=== PATIENT | male | born 1980 | race Caucasian/White ===

== ENCOUNTER 2021-01-13 01:57 | Emergency (ER) | payer OTHER, SELFPAY ==
[2021-01-13 01:58] VITALS: BP 117/67; PULSE 101; RESP 16; TEMP 37.4; O2SAT 96; BMI 13.8
[2021-01-13 02:00] VITALS: BP 117/67; PULSE 101; RESP 16; TEMP 37.4; O2SAT 96
--- NOTE | 2021-01-13 02:06 | ED.VIS.GEN ---
History of Present Illness Chief Complaint: Abscess Informant: Patient Onset: Yesterday Narrative: Patient reports noting small bump on his left axilla yesterday increased in size today. No drainage. He denies manipulating this. He states may have a couple small ones years ago that was self-limited. He is not a diabetic. Denies fevers. Discomfort worse with palpation. Denies past medical history. Denies any allergies. Denies taking any medication prior to arrival. Prior similar symptoms: Yes Past Medical History - Allergies and Home Meds Allergies/Adverse Reactions: Allergies No Known Allergies Allergy (Verified 01/13/21 02:02) Past Medical History: None Smoking Status: Current every day smoker Review of Systems General: Denies: Chills, Fever, Sweats Eyes: Denies: Visual changes - bilaterally, Diplopia ENT: Denies: Rhinorrhea, Sore throat Cardiovascular: Denies: Chest pain, Palpitations Respiratory: Denies: Dyspnea, Cough, Dyspnea on exertion Gastrointestinal: Denies: Abdominal pain, Nausea, Vomiting, Diarrhea, Melena, Hematochezia Genitourinary: Denies: Dysuria, Hematuria, Frequency Musculoskeletal: Denies: Back pain, Extremity Pain Skin: Reports: Abscess. Denies: Rash, Wounds Neurological: Denies: Headache, Weakness, Numbness Physical Exam Vital Signs/Narrative: Vital Signs Temp Pulse Resp BP Pulse Ox 01/13/21 02:00 99.4 F H 101 H 16 117/67 96 01/13/21 01:58 99.4 F H 101 H 16 117/67 96 Inital Vital Signs reviewed: Yes General: Well nourished, Well developed, No Acute Distress Head: Normocephalic, Atraumatic Eyes: Perrl, EOMI ENT: Moist mucous membranes, No rhinorrhea Neck: Supple, Nontender Cardiovascular: Regular rate, Regular rhythm, No murmurs Respiratory: No distress, CTA bilaterally, Chest nontender Abdomen: Soft, Nontender, Nondistended, Normal bowel sounds Back: Nontender, Normal Inspection Extremities: Nontender, No edema Skin: - - Left axilla: There is a 5 x 3 cm induration with less than 1 cm eschar, no active drainage. There is a palm-sized surrounding erythema that extends inferiorly to the induration. Neurological: Alert, Oriented x3, Cranial nerves II-XII grossly intact, Normal Strength, Normal Sensation Psychological: Normal affect, Normal Mood Diagnostic/Tx/Re-eval - Medical Decision Making Patient with no past medical history, nontoxic. Exam concerning for an abscess with surrounding cellulitis. Discussed incision and drainage for which she agreed. Upon incision and loculations being broken there is no exudative drainage this is all indurated tissue. He was started on Bactrim and Keflex in the ED prescriptions for antibiotics and ibuprofen were written. He is given follow-up as an outpatient with strict return precautions. Procedure note: Incision and drainage with verbal consent. Normal sterile conditions. Skin prep performed, total of 10 cc 1% lidocaine used for local analgesia. Dated 9 prep of the skin, 11 blade for a cruciate incision was made, there is no exudative drainage. Loculations broken with a hemostat. Dark blood return, no exudates. Wound copiously flushed with 250 cc of normal saline fluid. Half inch packing due to size of wound was placed. Patient tolerated procedure well. ED Disposition - Plan for ED Patient: Disposition: Home or Assisted Living Instructions: ED Abscess Incision And Drainage, ED Cellulitis Prescriptions: Smz/Tmp Ds [Bactrim Ds] 1 tablet PO BID #20 tab Transmission Status: Pending to [facility] Ibuprofen 600 mg PO 4X/DAY PRN #20 tablet PRN Reason: Pain 1-10 Or Fever Transmission Status: Pending to [facility] Cephalexin [Keflex] 500 mg PO Q6 #40 capsule Transmission Status: Pending to [facility] Referrals: Care Physician,No Primary [Primary Care Provider] - Martin Ryan MD [STAFF PHYSICIAN] - 3-5 Days
[2021-01-13] MEDS: Cephalexin 250 MG Capsule 500 MG PO (02:13)
[2021-01-13] MEDS: Smz/Tmp Ds Tablet 1 TABLET PO (02:13)
[2021-01-13] MEDS: Lidocaine 1% (20 ml mdv) 20 ML Vial INFILT (02:13)
== END 2021-01-13 04:05 | disposition home or self-care (01) ==
PROVIDERS: Emergency Provider Emergency Medicine
DX: L02.412 Cutaneous abscess of left axilla (principal); L03.112 Cellulitis of left axilla; F17.200 Nicotine dependence, unspecified, uncomplicated
CPT/HCPCS: 10060; 99284

== ENCOUNTER 2021-12-27 22:05 | Emergency (ER) | payer SELFPAY ==
[2021-12-27 22:06] VITALS: BP 146/93; PULSE 114; RESP 16; TEMP 36.4; O2SAT 101; BMI 26.1
--- NOTE | 2021-12-27 22:26 | EX.ED.DYSGE1 ---
HPI History of Present Illness Chief Complaint: Other, Pain/Inj Informant: patient Narrative Narrative: Patient presents for evaluation concerns for swelling lower jawline left side noted 2 to 3 days ago. He states he does have dental cavities. States swelling started, he took amoxicillin 2 days ago which was leftover. He states it did make it smaller however today weight gain twice the size. He is take additional 2 amoxicillin's today. No fevers. Denies hot cold sensitivities. Denies trouble swallowing. No other complaints. Prior similar symptoms: Yes PFSH PFSH Medical History Cellulitis Home Medications NK 12/27/21 [History Last Taken Unknown] penicillin V potassium 500 mg PO 4X/DAY #40 tab 12/27/21 [Rx Last Taken Unknown] Allergy/AdvReac Type Severity Reaction Status Date / Time No Known Allergies Allergy Verified 12/27/21 22:06 Social History Smoking Status: Current every day smoker tobacco type: cigarettes ROS ROS ED Constitutional Constitutional ED: Denies chills, fever(s) or sweats Eyes Eyes: Denies change in vision ENT ENT ED: Reports other Details: Jaw swelling ; Denies dysphagia or sore throat Cardiovascular Cardiovascular: Denies chest pain, leg edema, palpitations or racing heartbeat Respiratory/Chest Respiratory/Chest: Denies cough, dyspnea or dyspnea on exertion Gastrointestinal Gastrointestinal: Denies abdominal pain, diarrhea, nausea or vomiting Genitourinary Genitourinary ED: Denies dysuria, hematuria or urinary frequency Musculoskeletal Musculoskeletal: Denies back pain, extremity pain or neck pain Integumentary Denies rash or wounds Neurologic Neurologic: Denies headache(s), paresthesias or weakness EXAM Physical Exam Const Vital Signs: 12/27/21 22:06 Temperature 97.6 F L Temperature Source Temporal Pulse Rate 114 H Respiratory Rate 16 Blood Pressure 146/93 H Blood Pressure Mean 110 Pulse Ox 101 Oxygen Delivery Method Room Air Positive well nourished and well developed General Appearance ED: well developed and NAD HEENT Reports moist mucous membranes HEENT Narrative: There is dental cavity small fracture noted tooth #20, no sublingual edema. There was mild gum swelling just below this however there is no fluctuance. There was minimal swelling right of the jaw submental region left side. No submandibular lymphadenopathy. Airway patent. No trismus. No neck pain or crepitus. normocephalic and atraumatic Eyes PERRL, EOMs intact bilaterally and conjunctivae normal General Eye ED: Yes normal appearance of both eyes Neck no lymphadenopathy and supple General: Negative for tenderness Chest Wall Chest: Negative for tenderness Resp normal respiratory effort and normal air movement Effort and Inspection: symmetric chest movement; Negative for respiratory distress Cardio regular rhythm and no murmurs Rate: tachycardic Peripheral Pulses: pulses 2+ throughout GI normal to inspection, nondistended, normoactive bowel sounds and non-tender Palpation: Negative for guarding or rebound tenderness present Back/Spine no CVA tenderness and no thoracic nor lumbar tenderness Extremity normal to inspection General Extremety ED: Negative for edema or tenderness General Extremity: Negative for edema Neuro oriented x3 and no sensory deficits noted Sensorium / Orientation: awake and alert Skin no rashes or lesions noted and no wounds MDM MDM MDM Narrative Medical decision making narrative: Patient afebrile with mild tachycardia on arrival. However he is nontoxic. Exam concerns for mild focal gum swelling right below tooth #20 with cavity and small crack to the tooth. There is no tenderness to percussion. No sublingual edema noted. Discussed with patient likely the source with the swelling. There is no indication for I&D at this time. Patient will be placed on penicillin discussed with patient to finish the antibiotics. He is given dental list for follow-up for definitive treatment. He will use Tylenol Motrin as needed for pain control if increases pain. He reports minimal at this time. Discharge Plan Triage Chief Complaint: Other, Pain/Inj ED Provider: Vidal Andres Dx/Rx/DC Orders Clinical Impression: Dental abscess Instructions: ED Abscess Antibiotic Treatment Only Prescriptions: New penicillin V potassium 250 MG tablet 500 mg PO 4X/DAY Qty: 40 RF: 0 No Action NK RF: 0 Primary Care Provider: Care Physician,No Primary Referrals: Care Physician,No Primary [Primary Care Provider] - Activity Restrictions/Additional Instructions: Take and finish antibiotic as prescribed. Follow-up with dentist for definitive treatment. Disposition Disposition: Home, Self Care
[2021-12-27] MEDS: Penicillin Vk 250 MG Tablet 500 MG PO (22:34)
[2021-12-27 22:41] VITALS: PULSE 96; RESP 18; O2SAT 98
== END 2021-12-27 22:41 | disposition home or self-care (01) ==
LOC: ED 22:38
PROVIDERS: Emergency Provider Emergency Medicine; Visit Provider Emergency Medicine
DX: K04.7 Periapical abscess without sinus (principal); K02.9 Dental caries, unspecified; S02.5XXA Fracture of tooth (traumatic), initial encounter for closed fracture; X58.XXXA Exposure to other specified factors, initial encounter; F17.210 Nicotine dependence, cigarettes, uncomplicated
CPT/HCPCS: 99283

== ENCOUNTER 2022-02-04 14:52 | Emergency (ER) | payer SELFPAY ==
[2022-02-04 14:53] VITALS: BP 146/83; PULSE 94; RESP 18; TEMP 36.3; O2SAT 97; BMI 29.0
--- NOTE | 2022-02-04 15:51 | EDS_ITS ---
HPI History of Present Illness Chief Complaint: Eye Problem Detail of Chief Complaint: Pain foreign body right eye Informant: patient Onset/Context/Timing Location: Right Eye Onset: Days Context: Gradual Onset Timing: Continuous Current Severity: Mild Maximum Severity: Mild Associated Symptoms Associated Symptoms - Eyes: Foreign body sensation and Redness History of injury: No Visual correction: None Narrative Narrative: 41-year-old male does not wear glasses or contacts never had any eye problems or eye surgeries. Said on of last week he had a foreign body sensation. Thought it felt better that was worse than last couple days with redness. And pain with bright lights. He denies any visual changes. Denies any discharge or excessive watering. Prior similar symptoms: No Recent Illness/Hospitalization: No PFSH PFSH Medical History Cellulitis Home Medications penicillin V potassium 500 mg PO 4X/DAY #40 tab 12/27/21 [Rx Last Taken Unknown] erythromycin 1 applic EACH EYE Q6H 5 Days #1 g 02/04/22 [Rx Last Taken Unknown] polymyxin B sulf-trimethoprim [Polytrim] 1 drp RIGHT EYE Q2H 5 Days ml 02/04/22 [Rx Last Taken Unknown] Allergy/AdvReac Type Severity Reaction Status Date / Time No Known Allergies Allergy Verified 02/04/22 14:54 Surgical History History of hernia repair Social History Smoking Status: Current every day smoker tobacco type: cigarettes ROS ROS ED ROS Narrative Right eye foreign body. Review of Systems ROS Unobtainable: Denies due to encephalopathy Constitutional Constitutional ED: Denies fever(s) Eyes Eyes: Denies blurry vision, change in vision or diplopia ENT ENT ED: Denies ear pain Cardiovascular Cardiovascular: Denies chest pain Respiratory/Chest Respiratory/Chest: Denies dyspnea Gastrointestinal Gastrointestinal: Denies abdominal pain Genitourinary Genitourinary ED: Denies dysuria Musculoskeletal Musculoskeletal: Denies myalgias Neurologic Neurologic: Denies headache(s) Psychiatric Psychiatric: Denies depression Endocrine Endocrinology: Denies polyuria Hematologic/Lymphatic Hematologic/Lymphatic: Denies easy bruising Allergic/Immunologic Allergic/Immunologic ED: Denies urticaria EXAM Physical Exam Narrative Exam Narrative: And AML no acute distress. HEENT exam pupils round reactive light his motions are intact. Right eye is reddened. There is no discharge. Upper and lower lids were everted were unremarkable. At about 2:00 with the naked eye I can see foreign body on his iris. Const Vital Signs: 02/04/22 14:53 Temperature 97.4 F L Temperature Source Temporal Pulse Rate 94 Respiratory Rate 18 Blood Pressure 146/83 H Blood Pressure Mean 104 Pulse Ox 97 Oxygen Delivery Method Room Air Positive well nourished and well developed; Negative for obese, cachectic, contractures or unkempt General Appearance ED: well developed and NAD; Negative for unkempt, cachectic or contractures Nutritional Appearance: Negative for cachectic or obese HEENT atraumatic; Negative for trauma or tenderness Eyes Eyes Narrative: Foreign body right eye about 2:00. Tetracaine was applied and I was able to remove the foreign body into pieces with a Q-tip. And applied fluorescein and there appears to be a corneal abrasion where the foreign body was sitting. Otherwise unremarkable. No infection noted. General Eye ED: Yes normal appearance of both eyes and normal light reflex Visual Acuity: acuity normal and visual acuity right eye Visual Field: No peripheral vision loss and No bitemporal visual field cut Alignment: alignment normal Periorbital: periorbital findings normal Eyelid: eyelids normal Conjunctiva: Negative for conjunctiva normal Cornea: cornea abnormal and fluorescein used Pupil: PERRL and accommodation reflex normal EOM: EOM abnormal Direct Ophthalmoscopy: normal light reflex Slit Lamp: slit lamp exam performed with fluorescein Neck no lymphadenopathy, supple and no JVD General: Negative for tenderness Resp normal respiratory effort, no retractions, no use of accessory muscles and clear to auscultation bilaterally Cardio regular rate, regular rhythm, S1 normal heart sound, S2 normal heart sound and no murmurs GI non-tender, non-distended and no masses Auscultation: normoactive bowel sounds Palpation: soft Back/Spine no CVA tenderness General Back: Negative for CVA tenderness Extremity normal to inspection General Extremety ED: Negative for edema General Extremity: Negative for edema Neuro oriented x3 Sensorium / Orientation: alert, oriented to person and oriented to place Psych Appearance: Negative for unkempt Attitude: No agitated Mood & Affect: depressed; Negative for anxious or tearful Skin no wounds Lesions: no lesions Rashes: no rashes MDM MDM MDM Narrative Medical decision making narrative: 89-year-old male foreign-body right eye. Removed. I spoke to ophthalmology on-call Dr. Parra. Patient to follow-up with her tomorrow. Patient be placed on erythromycin ointment and polymyxin eyedrops. As discussed with the cable tool operator. Discharge Plan Triage Chief Complaint: Eye Problem ED Provider: Mario Meza Dx/Rx/DC Orders Clinical Impression: Acute foreign body of cornea, Abrasion, corneal Instructions: ED Corneal Abrasion, ED Corneal Foreign Body, Removed Prescriptions: New polymyxin B sulf-trimethoprim [Polytrim] 10,000 unit- 1 mg/mL drops 1 drp RIGHT EYE Q2H 5 Days RF: 0 erythromycin 5 mg/gram (0.5 %) ointment 1 applic EACH EYE Q6H 5 Days Qty: 1 RF: 0 No Action penicillin V potassium 250 MG tablet 500 mg PO 4X/DAY Qty: 40 RF: 0 Primary Care Provider: Care Physician,No Primary Referrals: Shira Parra MD [STAFF PHYSICIAN] - 1 Day Care Physician,No Primary [Primary Care Provider] - Activity Restrictions/Additional Instructions: Call and follow-up with the eye doctor tomorrow. You can use the eyedrops for the next 24 hours by this time tomorrow you cannot continue to use them to prevent healing. Use sunglasses to prevent flare. Eyedrops every 2 hours and then put the eye ointment in 4 times a day. Do the drops first because of a due to ointment for systolic murmur. Throughout the day Disposition Disposition: Home, Self Care
[2022-02-04] MEDS: Fluorescein 1 MG STRIP 1 STRIP RIGHT EYE (16:07)
[2022-02-04] MEDS: Tetracaine 0.5% Ophthalmic Bottle 1 DRP RIGHT EYE (16:07)
== END 2022-02-04 16:32 | disposition home or self-care (01) ==
PROVIDERS: Emergency Provider Emergency Medicine; Visit Provider Emergency Medicine
DX: T15.01XA Foreign body in cornea, right eye, initial encounter (principal); F17.210 Nicotine dependence, cigarettes, uncomplicated
CPT/HCPCS: 65220; 99283